=== PATIENT | female | born 1995 | race Caucasian/White ===

== ENCOUNTER 2021-02-21 00:55 | Inpatient (IN) | payer OTHER, SELFPAY ==
[~2021-02-21] VITALS: Ht 162.6 cm; Wt 104.3 kg
[2021-02-21] MEDS ORDERED: AMPICILLIN SODIUM 2 GM in NS 100 ML IV ONE (01:30)
[2021-02-21] MEDS ORDERED: TERBUTALINE SULFATE 1 MG/ML VIAL SUBCUT ONE (01:30)
[2021-02-21] MEDS ORDERED: OXYTOCIN/0.9 % SODIUM CHLORIDE 1,000 ML IV SCH (01:30)
[2021-02-21 02:33] LABS: BASOPHILS % (AUTO) 0.2 % (0.0-2.0); EOSINOPHILS # (AUTO) 0.3 K/uL (0.0-0.4); EOSINOPHILS % (AUTO) 1.9 % (0.0-4.0); HEMATOCRIT 36.2 % (36-48); HEMOGLOBIN 12.3 g/dL (12.0-16.0); LYMPHOCYTES # (AUTO) 2.2 K/uL (1.0-5.5); LYMPHOCYTES % (AUTO) 16.8 % (20.5-51.5); MEAN CORPUSCULAR HEMOGLOBIN 29 pg (27-31); MEAN CORPUSCULAR HGB CONC 34 % (32-36); MEAN CORPUSCULAR VOLUME 86 fL (79.0-98.0); MONOCYTES # (AUTO) 0.9 K/uL (0.0-1.0); MONOCYTES % (AUTO) 6.8 % (1.7-9.3); NEUTROPHILS # (AUTO) 9.8 K/uL (1.8-7.7); NEUTROPHILS % (AUTO) 74.3 % (40.0-70.0); PLATELET COUNT (AUTO) 270 K/uL (130-430); WHITE BLOOD COUNT (AUTO) 13.1 K/uL (4.8-10.8)
[2021-02-21] MEDS ORDERED: AMPICILLIN SODIUM 2 GM VIAL ONE (02:55)
[2021-02-21] MEDS: MISOPROSTOL 25 MCG (0.025 MG) *QUARTER TABLET VG SCH ×2 (02:55→06:52)
[2021-02-21 04:29] VITALS: BP_SYST 130
[2021-02-21] MEDS ORDERED: AMPICILLIN SODIUM 1 GM VIAL ONE (05:30)
[2021-02-21] MEDS: AMPICILLIN SODIUM 1 GM in NS 50 ML IV SCH ×4 (06:52→22:49)
[2021-02-21] MEDS: LR 1,000 ML IV SCH ×2 (13:30→21:59)
[2021-02-21] MEDS: NALBUPHINE HCL 10 MG/ML AMP IVP PRN ×2 (15:14→17:23)
[2021-02-21] MEDS ORDERED: fentaNYL CITRATE/PF 100 MCG/2 ML AMP ONE (23:48)
[2021-02-21] MEDS ORDERED: ROPIVACAINE HCL/PF 0.2% 200 ML ONE (23:48)
[2021-02-22] MEDS ORDERED: FENT2mCg/mL-ROPIVA0.2%/NS EPID 200 ML EP SCH (00:15)
[2021-02-22] MEDS ORDERED: LR 500 ML IV ONE (00:15)
[2021-02-22] MEDS: LR 1,000 ML IV SCH ×4 (00:29→19:41)
[2021-02-22] MEDS: AMPICILLIN SODIUM 1 GM in NS 50 ML IV SCH ×2 (02:58→06:51)
[2021-02-22] MEDS ORDERED: CEFAZOLIN 2 GM IVPB PREMIX 50 ML IV ONE ×2 (07:41→07:45)
[2021-02-22] MEDS ORDERED: NALOXONE HCL 0.4 MG/ML AMP (NARCAN) IVP PRN (09:30)
[2021-02-22] MEDS ORDERED: ONDANSETRON HCL 4 MG/2 ML VIAL IVP PRN (09:30)
[2021-02-22] MEDS ORDERED: METOCLOPRAMIDE HCL 10 MG/2 ML VIAL IVP PRN (09:30)
[2021-02-22] MEDS ORDERED: MEPERIDINE HCL/PF 25 MG/ML DISP.SYRIN IVP PRN (09:30)
[2021-02-22] MEDS ORDERED: DIPHENHYDRAMINE INJ 50 MG/ML VIAL IVP PRN (09:30)
[2021-02-22] MEDS ORDERED: KETOROLAC TROMETHAMINE 60 MG/2 ML VIAL IM PRN (09:30)
[2021-02-22] MEDS ORDERED: HYDROmorphone 1 MG/ML INJ. CARTRIDGE IVP PRN (09:30)
[2021-02-22] MEDS ORDERED: BUPIVACAINE /PF 0.5% 30 ML VIAL ONE (09:40)
[2021-02-22] MEDS ORDERED: OXYTOCIN/0.9 % SODIUM CHLORIDE 20 UNITS/1,000 ML BAG IV ONE (09:40)
[2021-02-22] MEDS ORDERED: WATER FOR IRRIGATION,STERILE 1,000 ML IRRIG.SOLN IR ONE (09:40)
[2021-02-22] MEDS ORDERED: MEPERIDINE 100 MG INJ. 100 MG/ML VIAL IM ONE (09:40)
[2021-02-22] MEDS ORDERED: LR 1,000 ML IV.SOLN IV ONE (09:40)
[2021-02-22] MEDS ORDERED: MORPHINE SULFATE 10MG/10ML PF AMP ONE (09:40)
[2021-02-22] MEDS ORDERED: NS IRRIG SOLN 1000 ML IR ONE (09:40)
[2021-02-22 09:45] VITALS: BP_SYST 75
[2021-02-22] MEDS ORDERED: RHO(D) IMMUNE GLOBULIN/MALTOSE 1500 UNITS/1.3 ML (WINHRO) IM PRN (11:15)
[2021-02-22] MEDS ORDERED: OXYTOCIN/0.9 % SODIUM CHLORIDE 1,000 ML IV ONE (11:15)
[2021-02-22] MEDS ORDERED: HYDROcodone/ACETAMIN 5-325 MG TAB (NORCO/ VICODIN) PO PRN (11:15)
[2021-02-22] MEDS ORDERED: MEASLES,MUMPS&RUBELLA VACC/PF 12500 UNIT/0.5 ML VIAL SUBQ PRN (11:15)
[2021-02-22] MEDS ORDERED: LR 1,000 ML IV SCH (11:15)
[2021-02-22] MEDS ORDERED: DIPH-TET-PERTUS Vaccine 0.5 ML VIAL (ADACEL) I.M. PRN (11:15)
[2021-02-22] MEDS ORDERED: LANOLIN 7 GM OINT. TP PRN (11:15)
[2021-02-22] MEDS ORDERED: ANUSOL 1 EA SUPP.RECT (PREPARATION H) RC PRN (11:15)
[2021-02-22] MEDS ORDERED: BISACODYL 10 MG/SUPPOSITORY RC PRN (11:15)
[2021-02-22] MEDS: KETOROLAC TROMETHAMINE 30 MG VIAL IVP SCH (18:04)
[2021-02-22] MEDS ORDERED: SENNOSIDES/DOCUSATE SODIUM 1 TAB TABLET(SENOKOT-S) PO SCH (21:00)
[2021-02-22] MEDS ORDERED: TEMAZEPAM 15 MG CAPSULE PO PRN (21:00)
[2021-02-23] MEDS: KETOROLAC TROMETHAMINE 30 MG VIAL IVP SCH ×2 (00:13→06:14)
[2021-02-23] MEDS: OXYCODONE/ACETAMINOPHEN 5-325 TABLET PO PRN ×3 (03:33→21:28)
[2021-02-23] MEDS: SIMETHICONE 80 MG TAB.CHEW PO PRN ×2 (06:27→12:29)
[2021-02-23 07:33] LABS: BASOPHILS % (AUTO) 0.2 % (0.0-2.0); EOSINOPHILS % (AUTO) 0.2 % (0.0-4.0); HEMOGLOBIN 9.9 g/dL (12.0-16.0); LYMPHOCYTES % (AUTO) 6.2 % (20.5-51.5); MEAN CORPUSCULAR HEMOGLOBIN 29 pg (27-31); MEAN CORPUSCULAR HGB CONC 34 % (32-36); MEAN CORPUSCULAR VOLUME 85 fL (79.0-98.0); MONOCYTES % (AUTO) 6.1 % (1.7-9.3); NEUTROPHILS # (AUTO) 14.2 K/uL (1.8-7.7); NEUTROPHILS % (AUTO) 87.3 % (40.0-70.0); PLATELET COUNT (AUTO) 203 K/uL (130-430); WHITE BLOOD COUNT (AUTO) 16.3 K/uL (4.8-10.8)
[2021-02-23] MEDS: DOCUSATE SODIUM 100 MG CAPSULE PO SCH ×4 (12:29→21:26)
[2021-02-23] MEDS: IBUPROFEN 600 MG TABLET PO SCH ×3 (12:30→23:43)
[2021-02-24] MEDS: IBUPROFEN 600 MG TABLET PO SCH ×2 (05:26→12:35)
[2021-02-24] MEDS: OXYCODONE/ACETAMINOPHEN 5-325 TABLET PO PRN ×3 (05:27→14:58)
[2021-02-24] MEDS ORDERED: BUPIVACAINE /PF 0.5% 30 ML VIAL EP ONE (11:36)
[2021-02-24] MEDS: DOCUSATE SODIUM 100 MG CAPSULE PO SCH (12:35)
== END 2021-02-24 15:20 | disposition home or self-care (01) | DRG 540 ==
LOC: SPU 00:55
PROVIDERS: ADMIT Obstetrics & Gynecology; ATTEND Obstetrics & Gynecology
PROC: 3E0P7VZ Introduction of Hormone into Female Reproductive, Via Natural or Artificial Opening (ICD-10-PCS; 2021-02-22)
PROC: 10D00Z1 Extraction of Products of Conception, Low, Open Approach (ICD-10-PCS; principal; 2021-02-22 08:47)
DX: O76 Abnormality in fetal heart rate and rhythm complicating labor and delivery (principal); O33.9 Maternal care for disproportion, unspecified; O61.0 Failed medical induction of labor; O62.1 Secondary uterine inertia; O69.81X0 Labor and delivery complicated by cord around neck, without compression, not applicable or unspecified; O99.824 Streptococcus B carrier state complicating childbirth; Z20.822 Contact with and (suspected) exposure to COVID-19; Z3A.39 39 weeks gestation of pregnancy; Z37.0 Single live birth
CPT/HCPCS: 36415; 76815; 81002; 85025; 86592; 86886; 86900; 86901; 94760; J0290; J0690; J1885; J2175; J2274; J2300; J2590; J3010; J3490; J7120